=== PATIENT | female | born 1985 | race African-American/Black ===

== ENCOUNTER 2018-01-12 21:00 | Emergency (ER) | payer MEDICAID ==
[~2018-01-12] VITALS: Ht 152.4 cm; Wt 106.0 kg
[~2018-01-12 21:00] MED LIST: CYCL5TAB PO; FLUTI44I INH; IBUP1TAB7 PO; LEVO-243 PO; LORA-650 PO; METR1TAB76 PO; MONT10TA4 PO
[2018-01-12 21:51] VITALS: BP 142/68; PULSE 88; RESP 20; TEMP 98.6; O2SAT 100
[2018-01-12] MEDS ORDERED: PRED-503 PO (22:14)
[2018-01-12] MEDS ORDERED: MECL1TAB42 PO (22:14)
--- NOTE | 2018-01-12 22:21 | PD ---
HPI Chief Complaint: Dizziness Time Seen by Provider: 22:02 Travel History International Travel<30 days: No Contact w/Intl Traveler<30days: No Traveled to known affect area: No History of Present Illness HPI 32-year-old white female presents emergency department with complaints of dizziness. Patient states that she has a history of seasonal allergies and is not compliant with her medications. She also states that she just has gotten over a cold in the past week. She had had runny nose, cough and congestion. Patient states that her symptoms are worse with positional changes. Worse with rolling over in bed. Patient states that she has a sense of dizziness and being off balance. She denies any focal weakness. No headache. No nausea, vomiting. No history of trauma. Symptoms are improved with sitting and remaining still. Patient states that she has not had a period in over 1 month. PFSH Past Medical History Narrative Medical Seasonal allergies Diminished Hearing: No Neurologic: Yes (STATES HX OF HEADACHES SINCE SHE WAS A LITTLE GIRL) Immunizations Current: Yes Tetanus Vaccination: < 5 Years (PICU) ?: Unknown LMP: 12/04/17 : 2 Para: 2 Miscarriage: 0 : 0 Past Surgical History Section: Yes Gynecologic Surgery: Yes () Social History Alcohol Use: Yes (OCCASIONALLY) Tobacco Use: No Substance Use: No Allergies-Medications (Allergen,Severity, Reaction): Coded Allergies: No Known Allergies (Verified Adverse Reaction, Unknown, 01/12/18) Reported Meds & Prescriptions Reported Meds & Active Scripts Active Meclizine 25 (Meclizine HCl) 25 Mg Tab 50 Mg PO BID 10 Days Deltasone (Prednisone) 20 Mg Tab 20 Mg PO BID 5 Days Metronidazole 500 Mg Tab 500 Mg PO BID Levora-28 Tablet (Levonorgestrel-Ethin Estradiol) 0.15 Mg-30 Mcg Tablet 1 Tab PO DAILY Reported Montelukast (Montelukast Sodium) 10 Mg Tab 10 Mg PO HS Flovent Hfa 10.6 GM Inh (Fluticasone Propionate) 44 Mcg/Act Inh 2 Puff INH BID Use daily at the same time. Allergy Relief (Loratadine) 10 Mg Tab 10 Mg PO BID Flexeril (Cyclobenzaprine HCl) 5 Mg Tab 5 Mg PO TID Ibuprofen 800 Mg Tab 800 Mg PO Q6HR PRN Review of Systems Except as stated in HPI: all other systems reviewed are Neg ( just like to make sure she knows) Physical Exam Narrative GENERAL: Well-developed, well-nourished in no apparent distress. Nontoxic appearing. HEAD: Normocephalic, atraumatic. EYES: Pupils equal round and reactive. Extraocular motions intact. No scleral icterus. No injection or drainage. ENT: Nose clear. Throat without erythema, tonsillar hypertrophy or exudate. Uvula midline. Airway patent. NECK: Trachea midline. Supple, nontender, moves head freely. No central bony tenderness or spasm. CARDIOVASCULAR: Regular rate and rhythm without murmurs, gallops, or rubs. RESPIRATORY: Clear to auscultation. Breath sounds equal bilaterally. No wheezes , rales, or rhonchi. GASTROINTESTINAL: Abdomen soft, non-tender, nondistended. No hepato-splenomegaly , or palpable masses. No guarding. EXTREMITIES: No clubbing, cyanosis, or edema. No joint tenderness. BACK: Nontender without deformity. No flank tenderness. NEUROLOGICAL: Awake, alert and oriented x 3 .Cranial nerves grossly intact. Motor and sensory grossly within normal limits. Normal speech. Normal gait. Normal tandem gait. Normal finger nose. Data Data Last Documented VS Vital Signs Date Time Temp Pulse Resp B/P (MAP) Pulse Ox O2 Delivery O2 Flow Rate FiO2 01/12/18 21:51 98.6 88 20 142/68 (92) 100 Room Air Orders Orders Ed Urine Pregnancytest Poc (01/12/18 22:11) [facility] Medical Decision Making Medical Screen Exam Complete: Yes Emergency Medical Condition: Yes Medical Record Reviewed: Yes Differential Diagnosis Differential diagnosis: Sinusitis, seasonal allergies, positional vertigo Narrative Course Patient's exam is reassuring. I have expressed to her that her test is negative and it is safe to take the medications. She is encouraged to take her sinus medicines as well. This is vertigo Diagnosis Primary Impression: Benign positional vertigo Qualified Codes: H81.10 - Benign paroxysmal vertigo, unspecified ear Patient Instructions: General Instructions Additional Instructions: Rest. Increase fluids. Continue home medications. Prednisone and Antivert. Follow up with your doctor in 1 week. Med/Other Pt SpecificInfo: Prescription(s) given Scripts Meclizine HCl (Meclizine 25) 25 Mg Tab 50 MG PO BID for 10 Days Prov: Annabelle Olivier MD 01/12/18 Prednisone (Deltasone) 20 Mg Tab 20 MG PO BID for 5 Days, #10 TAB 0 Refills Prov: Annabelle Olivier MD 01/12/18 Disposition: 01 DISCHARGE HOME Condition: Stable Gerry Ge Jan 12, 2018 22:21
== END 2018-01-12 22:58 | disposition home or self-care (01) ==
LOC: NEPD 21:00
DX: H81.10 Benign paroxysmal vertigo, unspecified ear (principal)
CPT/HCPCS: 84703; 99283